=== PATIENT | female | born 1935 | race Caucasian/White ===

== ENCOUNTER → 2016-10-01 | Outpatient (CLI) | payer OTHER ==
[~2016-10-01] MED LIST: ACETAMINOPHEN PO; ALBUTEROL17 GM INH; ALENDRONATE SOD70 MG; ALLEGRA PO; ASPIRIN PO; AVAPRO PO; CELEBREX PO; CELEXA20 MG PO; CIPRO PO; COLACE PO; DEXILANT30 MG; FLEXERIL PO; IMDUR PO; INDOCIN SR75 MG PO; KROGER PHARMACY; LASIX PO; LEXAPRO PO; LIPITOR PO; LISINOPRIL PO; NASACORT AQ16.5 GM; NEXIUM PO; NORVASC PO; NORVASC10 MG PO; PERCOCET5/325 PO; PROTONIX PO; ROBAXIN PO; SYNTHROID PO; TOPROL XL PO; VITAL-D RX TABL1 TAB PO; VITAMIN B12; VITAMIN E; ZOCOR PO; [UNRECOGNIZED DRUG - OTHER]
--- NOTE | ~2016-10-01 | MR32 ---
[facility] A Service of [facility] & [facility] RADIOLOGY TEXT RESULTS PATIENT: WILL CLANCY LOCATION: [facility] : 37 UNIT #: [id number] AGE: [address]: NATALIE NELSON APRN SEX: F ORDER DR: [id number] [facility] [address] [place], [place] [address] [id number] O MR#: [id number] Acc #: [id number] NAME: WILL CLANCY : 1935 SEX: F STUDY DATE/TIME: 10/01/2016 13:57 UNIT: [facility] ROOM: STUDY DESCRIPTION: MR Cervical Wo Contrast Attending Physician: Natalie Nelson M.D. Referring Physician: Natalie Nelson M.D. Ordering Physician: Natalie Nelson M.D. Primary Care Physician: Natalie Nelson M.D. MRI CENTER REPORT This report is preliminary unless electronic signature is present. EXAM MRI of the cervical spine without contrast, dated 10/01/2016. COMPARISON None. HISTORY Neck pain with bilateral arm pain and numbness for 3 months. Headaches. FINDINGS Multisequence, multiplanar imaging of the cervical spine was obtained without contrast. Vertebral body heights are preserved. There is minimal 3 mm retrolisthesis of C5 with respect to C4. Anterior cervical fusion is noted with hardware at C5-6. Cord demonstrates normal expected course and signal. There is mild parenchymal volume loss in the posterior fossa, age-appropriate. Pre and paravertebral soft tissues do not demonstrate any significant abnormality. C2-3: Central moderate protrusion with mild mass effect on the adjacent thecal sac. Mild left facet hypertrophic changes seen without any significant neural foraminal narrowing or canal stenosis. C3-4: Disc osteophyte complex with borderline size to mild canal stenosis. Mild bilateral facet changes are noted with superior left neural foraminal narrowing with patent inferior aspect. C4-5: Disc osteophyte complex with [id number] bilateral facet hypertrophic changes. Borderline size to mild canal stenosis with superior right neural foraminal narrowing and relatively patent inferior aspect. C5-6: Status post anterior cervical fusion. No canal stenosis or neural foraminal narrowing. Mild bilateral facet changes. ST[facility] A Service of [facility] & [facility] RADIOLOGY TEXT RESULTS PATIENT: WILL CLANCY LOCATION: [facility] : 37 UNIT #: [id number] AGE: [address]: NATALIE NELSON APRN SEX: F ORDER DR: C6-7: Concentric disc bulge with small central protrusion and mild bilateral facet changes. There is mild left neural foraminal encroachment without nerve impingement. C7-T1: Mild degenerative disc signal loss with mild right facet hypertrophic change. No canal stenosis or neural foraminal narrowing. IMPRESSION 1. Status post anterior cervical fusion at C5-6 with presence of hardware. 2. Mild degenerative changes are noted in multiple levels. 3. Disc osteophyte complexes more prominent at C4-5 with 3 mm retrolisthesis of C5 with respect to C4. These contribute to mild to moderate canal stenosis. 4. Facet hypertrophic changes are at multiple levels. 5. Mild neural foraminal encroachment are noted as described above without any significant nerve impingement. Dictated by... Alberta Chowdhury M.D. THIS IS AN ELECTRONICALLY VERIFIED REPORT Alberta Chowdhury M.D. at 10/06/2016 11:34 AM CPR/pavan TD: 10/01/2016 23:36 JOB #: [id number] MRI CENTER REPORT Page 1 of 1 COPY
== END | disposition home or self-care (01) ==
LOC: CMRI 13:26
DX: M54.2 Cervicalgia (principal); M25.78 Osteophyte, vertebrae; M43.12 Spondylolisthesis, cervical region; M47.892 Other spondylosis, cervical region; Z98.1 Arthrodesis status
CPT/HCPCS: 72141

== ENCOUNTER → 2016-10-14 | Outpatient (CLI) | payer OTHER | END | disposition home or self-care (01) | LOC: CRAD 08:13 | DX: R13.10 Dysphagia, unspecified (principal) | CPT/HCPCS: 74230; 92611; G8996-GN; G8997-GN; G8998-GN ==

== ENCOUNTER 2016-10-24 01:29 | Emergency (ER) | payer OTHER ==
[~2016-10-24] VITALS: Ht 157.5 cm; Wt 66.7 kg
--- NOTE | ~2016-10-24 | CR126 ---
[facility] A Service of [facility] & [facility] RADIOLOGY TEXT RESULTS PATIENT: WILL CLANCY LOCATION: SED : 37 UNIT #: [id number] AGE: [address]: Elif Lua MD SEX: F ORDER DR: [id number] [place] [id number] E MR#: [id number] Acc #: [id number] NAME: WILL CLANCY : 1935 SEX: F STUDY DATE/TIME: 10/24/2016 02:01 UNIT: SED ROOM: STUDY DESCRIPTION: CR Foot Complete Min 3 View Lt Attending Physician: Elif Lua M.D. Ordering Physician: Elif Lua M.D. Primary Care Physician: Natalie Palomo M.D. MEDICAL IMAGING REPORT This report is preliminary unless electronic signature is present. EXAM Left foot, 10/24/2016 at 02:01. INDICATIONS Left foot pain and redness toward the 4th and 5th metatarsals that started at 7:30 p.m. this evening. No trauma. FINDINGS Three views of the left foot were obtained. No fracture or malalignment is seen. The soft tissues are unremarkable. IMPRESSION Negative left foot. Dictated by... Viraj Roland Jr., M.D. THIS IS AN ELECTRONICALLY VERIFIED REPORT Viraj Roland Jr., M.D. at 10/25/2016 4:15 AM DENEEN/pavan TD: 10/24/2016 23:37 JOB #: [id number] MEDICAL IMAGING REPORT Page 1 of 1
[~2016-10-24 01:29] MED LIST changes: -ALENDRONATE SOD70 MG; -NORVASC10 MG PO
[2016-10-24] MEDS ORDERED: NORVASC10 MG PO (01:37)
[2016-10-24] MEDS ORDERED: ALENDRONATE SOD70 MG (01:38)
== END 2016-10-24 03:00 | disposition home or self-care (01) ==
LOC: SED 01:29
DX: S93.602A Unspecified sprain of left foot, initial encounter (principal); I10 Essential (primary) hypertension; Z88.8 Allergy status to other drugs, medicaments and biological substances; Z79.899 Other long term (current) drug therapy; Z79.82 Long term (current) use of aspirin; X50.1XXA Overexertion from prolonged static or awkward postures, initial encounter; Y92.009 Unspecified place in unspecified non-institutional (private) residence as the place of occurrence of the external cause
CPT/HCPCS: 29540; 73630; 99283